=== PATIENT | male | born 1960 | race Caucasian/White ===

== ENCOUNTER 2019-06-27 16:05 | Observation (INO) ==
[2019-06-27] MEDS ORDERED: Ipratropium/Albuterol Neb 3 ML IH ONE (16:14)
[2019-06-27] MEDS ORDERED: Azithromycin 500 MG in D5% in Water 250 ML IVPB ONE (16:26)
[2019-06-27 16:54] LABS: Basophils # 0.1 K/mcL (0.0-0.2); Basophils % 0.5 %; Eosinophils # 0.9 K/mcL (0.0-0.6); Eosinophils % 5.8 %; Hematocrit 43.7 % (37.5-50.1); Hemoglobin 14.8 g/dL (12.9-16.9); Immature Granulocytes % 0.7 % (0-4); Lymphocytes # 1.3 K/mcL (0.6-4.6); Lymphocytes % 8.9 %; Mean Corpuscular HGB Conc 33.9 g/dL (31.6-35.5); Mean Corpuscular Hemoglobin 31.4 pg (28.0-33.3); Mean Corpuscular Volume 92.6 fL (83.0-100.0); Mean Platelet Volume 8.7 fL (9.4-12.4); Monocytes % 6.9 %; Neutrophils # 11.5 K/mcL (1.6-8.9); Platelet Count 314 K/mcL (140-400); Red Blood Count 4.72 M/mcL (4.19-5.50); Red Cell Distribution Width 13.1 % (11.5-14.5); Segmented Neutrophils % 77.2 %; White Blood Count 14.9 K/mcL (4.3-11.1)
[2019-06-27 17:00] LABS: Prothrombin Time 11.7 Seconds (9.4-12.1)
[2019-06-27 17:15] LABS: BUN/Creatinine Ratio 11 (6-26); Blood Urea Nitrogen 10 mg/dL (8-23); Carbon Dioxide 21 mEq/L (23-29); Chloride 104 mEq/L (98-107); Glucose 107 mg/dL (70-105); Osmolality,Calculated 282 (280-300); Potassium 3.8 mEq/L (3.5-5.1); Sodium 136 mEq/L (136-145); eGFR For African Americans > 60 (> 60); eGFR For Non-African Americans > 60 (> 60)
[2019-06-27 17:23] LABS: Troponin I < 0.03 ng/mL (< 0.04)
[2019-06-27] MEDS ORDERED: Nicotine 21 MG PATCH.TD24 TD ONE (17:31)
[2019-06-27] MEDS: 0.9 % Sodium Chloride 1,000 ML IVC SCH ×2 (17:50→19:51)
[2019-06-27] MEDS ORDERED: Albuterol 2.5 MG/3 ML NEBULIZER IH PRN (18:27)
[2019-06-27] MEDS: Ipratropium/Albuterol Neb 3 ML IH SCH ×2 (18:49→23:58)
[2019-06-27 18:52] LABS: ABG Base Excess -6 mEq/L (-2 to 3); ABG HCO3 20 mEq/L (21-27); ABG Oxygen Saturation 96 % (95-98); ABG PCO2 40 mmHg (35-45); ABG PH 7.31 pH Units (7.32-7.45); ABG PO2 87 mmHg (85-104); ABG TCO2 21 mEq/L (20-26)
[2019-06-27] MEDS ORDERED: Azithromycin 500 MG in 0.9 % Sodium Chloride 250 ML IVPB SCH (19:00)
[2019-06-27] MEDS ORDERED: 0.9 % Sodium Chloride 1,000 ML IVC SCH (23:15)
[2019-06-28] MEDS: Ipratropium/Albuterol Neb 3 ML IH SCH ×5 (04:03→20:12)
[2019-06-28] MEDS: *HR* Heparin 5,000 UNIT/ML VIAL SQ SCH ×2 (05:15→18:56)
[2019-06-28 05:23] LABS: Hematocrit 39.7 % (37.5-50.1); Hemoglobin 13.8 g/dL (12.9-16.9); Mean Corpuscular HGB Conc 34.8 g/dL (31.6-35.5); Mean Corpuscular Hemoglobin 31.2 pg (28.0-33.3); Mean Corpuscular Volume 89.6 fL (83.0-100.0); Mean Platelet Volume 9.2 fL (9.4-12.4); Platelet Count 350 K/mcL (140-400); Red Blood Count 4.43 M/mcL (4.19-5.50); Red Cell Distribution Width 13.2 % (11.5-14.5); White Blood Count 10.3 K/mcL (4.3-11.1)
[2019-06-28 05:31] LABS: BUN/Creatinine Ratio 10 (6-26); Blood Urea Nitrogen 7 mg/dL (8-23); Calcium 9.5 mg/dL (8.6-10.3); Carbon Dioxide 23 mEq/L (23-29); Chloride 106 mEq/L (98-107); Glucose 139 mg/dL (70-105); Osmolality,Calculated 288 (280-300); Potassium 4.5 mEq/L (3.5-5.1); Sodium 139 mEq/L (136-145); eGFR For African Americans > 60 (> 60); eGFR For Non-African Americans > 60 (> 60)
[2019-06-28] MEDS: Nicotine 21 MG PATCH.TD24 TD SCH (09:44)
[2019-06-28] MEDS: Azithromycin 500 MG in 0.9 % Sodium Chloride 250 ML IVPB SCH (09:44)
[2019-06-28] MEDS: predniSONE 20 MG TABLET PO SCH (09:44)
[2019-06-28] MEDS ORDERED: Carbidopa/Levodopa 25/100 TABLET PO SCH ×2 (12:15→21:00)
[2019-06-28] MEDS: Gabapentin 300 MG CAPSULE PO SCH ×2 (15:57→20:58)
[2019-06-28] MEDS: Budesonide/Formoterol 160/4.5 1 PUFF INH IH SCH (20:13)
[2019-06-29] MEDS: Ipratropium/Albuterol Neb 3 ML IH SCH ×3 (00:27→07:43)
[2019-06-29] MEDS: *HR* Heparin 5,000 UNIT/ML VIAL SQ SCH (05:17)
[2019-06-29 06:07] LABS: Hematocrit 37.2 % (37.5-50.1); Hemoglobin 12.4 g/dL (12.9-16.9); Mean Corpuscular HGB Conc 33.3 g/dL (31.6-35.5); Mean Corpuscular Hemoglobin 30.5 pg (28.0-33.3); Mean Corpuscular Volume 91.4 fL (83.0-100.0); Platelet Count 308 K/mcL (140-400); Red Blood Count 4.07 M/mcL (4.19-5.50); Red Cell Distribution Width 13.7 % (11.5-14.5)
[2019-06-29 06:12] LABS: White Blood Count 15.4 K/mcL (4.3-11.1)
[2019-06-29 06:33] LABS: BUN/Creatinine Ratio 17 (6-26); Blood Urea Nitrogen 14 mg/dL (8-23); Carbon Dioxide 24 mEq/L (23-29); Chloride 104 mEq/L (98-107); Glucose 99 mg/dL (70-105); Osmolality,Calculated 285 (280-300); Potassium 3.5 mEq/L (3.5-5.1); Sodium 137 mEq/L (136-145); eGFR For African Americans > 60 (> 60); eGFR For Non-African Americans > 60 (> 60)
[2019-06-29] MEDS: Budesonide/Formoterol 160/4.5 1 PUFF INH IH SCH (07:43)
[2019-06-29] MEDS: predniSONE 20 MG TABLET PO SCH (08:36)
[2019-06-29] MEDS: Azithromycin 500 MG in 0.9 % Sodium Chloride 250 ML IVPB SCH (08:36)
[2019-06-29] MEDS: Gabapentin 300 MG CAPSULE PO SCH (08:36)
[2019-06-29] MEDS: Nicotine 21 MG PATCH.TD24 TD SCH (08:37)
[2019-06-29] MEDS ORDERED: NON-FORMULARY MEDICATION 1 EACH EACH (Umeclidinium Bromide [Incruse Ellipta] 1 PUFF) IH SCH (09:00)
[2019-06-29] MEDS ORDERED: Fluticasone Propionate Nasal 50 MCG/SPRAY BOTTLE NS SCH (09:00)
[2019-06-29] MEDS ORDERED: Aspirin Enteric Coated 81 MG Tablet PO SCH (09:00)
[2019-06-29] MEDS ORDERED: NIFEdipine XL (24 HR) 30 MG TAB.ER.24 PO SCH (09:00)
[2019-06-29 09:09] VITALS: BP 149/88
[2019-07-01] MEDS ORDERED: Ergocalciferol (VIT D2) 50,000 UNIT (1.25MG) CAP PO SCH (09:00)
== END 2019-06-29 10:16 | disposition home or self-care (01) ==
LOC: EMEROOARM 16:05 → 2ANU 16:05 → SUATTDRO 18:53 → 2ANU 20:10
PROVIDERS: ADMIT Family Medicine; ATTEND Internal Medicine

== ENCOUNTER 2019-07-08 12:07 | Inpatient (IN) ==
[2019-07-08] MEDS ORDERED: methylPREDNISolone 125 MG/2 ML VIAL IVP ONE (12:11)
[2019-07-08] MEDS ORDERED: Ipratropium/Albuterol Neb 3 ML IH ONE (12:11)
[2019-07-08] MEDS ORDERED: Ipratropium/Albuterol Neb 3 ML ONE (12:14)
[2019-07-08 12:41] LABS: Basophils # 0.1 K/mcL (0.0-0.2); Basophils % 0.5 %; Eosinophils # 3.7 K/mcL (0.0-0.6); Eosinophils % 17.9 %; Hematocrit 45.8 % (37.5-50.1); Hemoglobin 15.4 g/dL (12.9-16.9); Immature Granulocytes % 0.9 % (0-4); Lymphocytes # 2.5 K/mcL (0.6-4.6); Lymphocytes % 12.2 %; Mean Corpuscular HGB Conc 33.6 g/dL (31.6-35.5); Mean Corpuscular Hemoglobin 30.6 pg (28.0-33.3); Mean Corpuscular Volume 90.9 fL (83.0-100.0); Mean Platelet Volume 8.6 fL (9.4-12.4); Monocytes # 0.9 K/mcL (0.0-1.3); Monocytes % 4.4 %; Platelet Count 363 K/mcL (140-400); Red Blood Count 5.04 M/mcL (4.19-5.50); Red Cell Distribution Width 13.5 % (11.5-14.5); Segmented Neutrophils % 64.1 %; White Blood Count 20.5 K/mcL (4.3-11.1)
[2019-07-08 12:43] LABS: Neutrophils # 13.1 K/mcL (1.6-8.9); Platelet Estimate Normal (Normal)
[2019-07-08 13:01] LABS: BUN/Creatinine Ratio 13 (6-26); Blood Urea Nitrogen 11 mg/dL (8-23); Carbon Dioxide 25 mEq/L (23-29); Chloride 100 mEq/L (98-107); Glucose 122 mg/dL (70-105); Osmolality,Calculated 275 (280-300); Potassium 4.4 mEq/L (3.5-5.1); Sodium 132 mEq/L (136-145); eGFR For African Americans > 60 (> 60); eGFR For Non-African Americans > 60 (> 60)
[2019-07-08] MEDS ORDERED: Azithromycin 500 MG in 0.9 % Sodium Chloride 250 ML IVPB ONE (13:10)
[2019-07-08] MEDS ORDERED: Albuterol 2.5 MG/3 ML NEBULIZER IH ONE (14:01)
[2019-07-08] MEDS ORDERED: Isovue-370 500 ML BOTTLE IVP ONE (14:13)
[2019-07-08] MEDS ORDERED: Naloxone 0.4 MG/ML INJ IVP PRN (14:14)
[2019-07-08] MEDS ORDERED: Ondansetron 4 MG/2 ML VIAL IVP PRN (14:14)
[2019-07-08] MEDS: Ipratropium/Albuterol Neb 3 ML IH SCH ×3 (15:07→23:51)
[2019-07-08] MEDS: MethylPREDNISolone 40 MG/ML VIAL IVP SCH (17:49)
[2019-07-08] MEDS: *HR* Heparin 5,000 UNIT/ML VIAL SQ SCH (17:49)
[2019-07-08] MEDS: Gabapentin 300 MG CAPSULE PO SCH ×2 (17:49→20:43)
[2019-07-08] MEDS: Nicotine 21 MG PATCH.TD24 TD SCH (17:50)
[2019-07-08 19:20] LABS: Adenovirus Not Detected (Not Detect); Bordetella Pertussis Not Detected (Not Detect); Chlamydophila pneumoniae Not Detected (Not Detect); Coronavirus 229E Not Detected (Not Detect); Coronavirus HKU1 Not Detected (Not Detect); Coronavirus NL63 Not Detected (Not Detect); Coronavirus OC43 Not Detected (Not Detect); Human Metapneumovirus Not Detected (Not Detect); Human Rhinovirus/Enterovirus Not Detected (Not Detect); Influenza A Subtype 2009 H1 Not Detected (Not Detect); Influenza B Not Detected (Not Detect); Mycoplasma pneumoniae Not Detected (Not Detect); Parainfluenza Virus 1 Not Detected (Not Detect); Parainfluenza Virus 2 Not Detected (Not Detect); Parainfluenza Virus 3 Not Detected (Not Detect); Parainfluenza Virus 4 Not Detected (Not Detect); Respiratory Syncytial Virus Not Detected (Not Detect)
[2019-07-08] MEDS: Budesonide/Formoterol 160/4.5 1 PUFF INH IH SCH (20:03)
[2019-07-09] MEDS ORDERED: 0.9 % Sodium Chloride 1,000 ML IVC ONE ×2 (00:22→03:51)
[2019-07-09 03:07] LABS: Basophils % 0.1 %; Eosinophils % 0.1 %; Hematocrit 41.1 % (37.5-50.1); Hemoglobin 13.9 g/dL (12.9-16.9); Immature Granulocytes % 0.9 % (0-4); Lymphocytes # 1.4 K/mcL (0.6-4.6); Lymphocytes % 10.2 %; Mean Corpuscular HGB Conc 33.8 g/dL (31.6-35.5); Mean Corpuscular Hemoglobin 30.9 pg (28.0-33.3); Mean Corpuscular Volume 91.3 fL (83.0-100.0); Mean Platelet Volume 8.9 fL (9.4-12.4); Monocytes # 0.4 K/mcL (0.0-1.3); Monocytes % 2.6 %; Platelet Count 309 K/mcL (140-400); Red Cell Distribution Width 13.4 % (11.5-14.5); Segmented Neutrophils % 86.1 %
[2019-07-09 03:22] LABS: BUN/Creatinine Ratio 17 (6-26); Blood Urea Nitrogen 16 mg/dL (8-23); Calcium 9.5 mg/dL (8.6-10.3); Carbon Dioxide 21 mEq/L (23-29); Chloride 103 mEq/L (98-107); Glucose 148 mg/dL (70-105); Magnesium 1.8 mg/dL (1.6-2.6); Osmolality,Calculated 282 (280-300); Potassium 4.2 mEq/L (3.5-5.1); Sodium 134 mEq/L (136-145); eGFR For African Americans > 60 (> 60); eGFR For Non-African Americans > 60 (> 60)
[2019-07-09] MEDS: Ipratropium/Albuterol Neb 3 ML IH SCH ×6 (04:17→23:57)
[2019-07-09] MEDS: *HR* Heparin 5,000 UNIT/ML VIAL SQ SCH ×2 (05:43→17:34)
[2019-07-09] MEDS: MethylPREDNISolone 40 MG/ML VIAL IVP SCH ×2 (05:46→17:34)
[2019-07-09] MEDS: Budesonide/Formoterol 160/4.5 1 PUFF INH IH SCH ×2 (07:33→19:57)
[2019-07-09] MEDS: Carbidopa/Levodopa 25/100 TABLET PO SCH (08:45)
[2019-07-09] MEDS: NIFEdipine XL (24 HR) 30 MG TAB.ER.24 PO SCH (08:45)
[2019-07-09] MEDS: Aspirin Enteric Coated 81 MG Tablet PO SCH (08:45)
[2019-07-09] MEDS: Gabapentin 300 MG CAPSULE PO SCH ×3 (08:46→20:05)
[2019-07-09] MEDS: Nicotine 21 MG PATCH.TD24 TD SCH (08:46)
[2019-07-09] MEDS: Fluticasone Propionate Nasal 50 MCG/SPRAY BOTTLE NS SCH (08:52)
[2019-07-10] MEDS: Ipratropium/Albuterol Neb 3 ML IH SCH ×6 (03:46→23:40)
[2019-07-10] MEDS: MethylPREDNISolone 40 MG/ML VIAL IVP SCH ×2 (05:32→17:35)
[2019-07-10] MEDS: *HR* Heparin 5,000 UNIT/ML VIAL SQ SCH ×2 (05:32→17:38)
[2019-07-10 07:33] LABS: Hemoglobin 14.1 g/dL (12.9-16.9); Red Cell Distribution Width 13.9 % (11.5-14.5)
[2019-07-10 07:34] LABS: Estimated Average Glucose 128 mg/dl; Mean Corpuscular HGB Conc 33.6 g/dL (31.6-35.5); Mean Corpuscular Hemoglobin 30.7 pg (28.0-33.3); Mean Corpuscular Volume 91.5 fL (83.0-100.0); Platelet Count 336 K/mcL (140-400); Red Blood Count 4.59 M/mcL (4.19-5.50); White Blood Count 28.5 K/mcL (4.3-11.1)
[2019-07-10] MEDS: Budesonide/Formoterol 160/4.5 1 PUFF INH IH SCH ×2 (07:50→19:45)
[2019-07-10 07:53] LABS: BUN/Creatinine Ratio 31 (6-26); Blood Urea Nitrogen 28 mg/dL (8-23); Calcium 9.6 mg/dL (8.6-10.3); Carbon Dioxide 25 mEq/L (23-29); Chloride 100 mEq/L (98-107); Glucose 127 mg/dL (70-105); Osmolality,Calculated 283 (280-300); Potassium 4.6 mEq/L (3.5-5.1); Sodium 133 mEq/L (136-145); eGFR For African Americans > 60 (> 60); eGFR For Non-African Americans > 60 (> 60)
[2019-07-10] MEDS: Gabapentin 300 MG CAPSULE PO SCH ×3 (08:12→20:48)
[2019-07-10] MEDS: Nicotine 21 MG PATCH.TD24 TD SCH (08:12)
[2019-07-10] MEDS: Carbidopa/Levodopa 25/100 TABLET PO SCH (08:12)
[2019-07-10] MEDS: NIFEdipine XL (24 HR) 30 MG TAB.ER.24 PO SCH (08:12)
[2019-07-10] MEDS: Aspirin Enteric Coated 81 MG Tablet PO SCH (08:12)
[2019-07-10] MEDS: Fluticasone Propionate Nasal 50 MCG/SPRAY BOTTLE NS SCH (08:13)
[2019-07-11 03:07] LABS: Basophils % 0.1 %; Hematocrit 39.9 % (37.5-50.1); Lymphocytes # 1.8 K/mcL (0.6-4.6); Lymphocytes % 8.2 %; Mean Corpuscular HGB Conc 32.6 g/dL (31.6-35.5); Mean Corpuscular Volume 91.9 fL (83.0-100.0); Mean Platelet Volume 9.2 fL (9.4-12.4); Monocytes # 1.1 K/mcL (0.0-1.3); Monocytes % 4.8 %; Neutrophils # 18.9 K/mcL (1.6-8.9); Platelet Count 321 K/mcL (140-400); Red Blood Count 4.34 M/mcL (4.19-5.50); Red Cell Distribution Width 13.6 % (11.5-14.5); Segmented Neutrophils % 85.9 %
[2019-07-11 03:26] LABS: BUN/Creatinine Ratio 30 (6-26); Blood Urea Nitrogen 28 mg/dL (8-23); Calcium 9.2 mg/dL (8.6-10.3); Carbon Dioxide 25 mEq/L (23-29); Chloride 102 mEq/L (98-107); Glucose 126 mg/dL (70-105); Osmolality,Calculated 285 (280-300); Potassium 4.5 mEq/L (3.5-5.1); Sodium 134 mEq/L (136-145); eGFR For African Americans > 60 (> 60); eGFR For Non-African Americans > 60 (> 60)
[2019-07-11] MEDS: Ipratropium/Albuterol Neb 3 ML IH SCH ×3 (03:56→11:05)
[2019-07-11] MEDS: *HR* Heparin 5,000 UNIT/ML VIAL SQ SCH (05:22)
[2019-07-11] MEDS: MethylPREDNISolone 40 MG/ML VIAL IVP SCH (05:22)
[2019-07-11 06:37] VITALS: BP 119/81
[2019-07-11] MEDS: Budesonide/Formoterol 160/4.5 1 PUFF INH IH SCH (07:34)
[2019-07-11] MEDS: Aspirin Enteric Coated 81 MG Tablet PO SCH (07:57)
[2019-07-11] MEDS: Gabapentin 300 MG CAPSULE PO SCH (07:58)
[2019-07-11] MEDS: Carbidopa/Levodopa 25/100 TABLET PO SCH (07:58)
[2019-07-11] MEDS: NIFEdipine XL (24 HR) 30 MG TAB.ER.24 PO SCH (07:59)
[2019-07-11] MEDS: Nicotine 21 MG PATCH.TD24 TD SCH (07:59)
[2019-07-11] MEDS: Fluticasone Propionate Nasal 50 MCG/SPRAY BOTTLE NS SCH (08:00)
[2019-07-11] MEDS ORDERED: predniSONE 20 MG TABLET PO ONE (08:35)
[2019-07-11] MEDS ORDERED: Doxycycline 100 MG CAPSULE PO ONE (08:36)
== END 2019-07-11 12:43 | disposition home or self-care (01) | DRG 189 ==
LOC: 3BNU 12:07 → EMEROOARM 12:07 → SUATTDRO 14:14 → 3BNU 15:34
PROVIDERS: ADMIT Internal Medicine; ATTEND Internal Medicine

== ENCOUNTER 2019-08-30 20:41 | Inpatient (IN) ==
[2019-08-30] MEDS ORDERED: Ipratropium/Albuterol Neb 3 ML IH ONE (20:46)
[2019-08-30 21:19] LABS: Basophils # 0.1 K/mcL (0.0-0.2); Basophils % 0.9 %; Eosinophils # 1.5 K/mcL (0.0-0.6); Eosinophils % 10.9 %; Hematocrit 43.6 % (37.5-50.1); Hemoglobin 14.6 g/dL (12.9-16.9); Immature Granulocytes % 0.5 % (0-4); Lymphocytes # 3.7 K/mcL (0.6-4.6); Lymphocytes % 26.9 %; Mean Corpuscular HGB Conc 33.5 g/dL (31.6-35.5); Mean Corpuscular Hemoglobin 30.8 pg (28.0-33.3); Mean Platelet Volume 8.9 fL (9.4-12.4); Monocytes # 1.5 K/mcL (0.0-1.3); Monocytes % 11.2 %; Neutrophils # 6.8 K/mcL (1.6-8.9); Platelet Count 358 K/mcL (140-400); Red Blood Count 4.74 M/mcL (4.19-5.50); Red Cell Distribution Width 13.2 % (11.5-14.5); Segmented Neutrophils % 49.6 %; White Blood Count 13.8 K/mcL (4.3-11.1)
[2019-08-30 21:21] LABS: Bilirubin,Urine Negative (Negative); Blood,Urine Negative (Negative); Clarity,Urine Clear (Clear); Color,Urine Yellow (Yellow); Glucose,Urine (UA) 250 mg/dL (Normal); Ketones,Urine Negative (Negative); Leukocyte Esterase,Urine Negative (Negative); Nitrite,Urine Negative (Negative); Protein,Urine 30 mg/dL (Neg-Trace); Specific Gravity,Urine 1.018 (1.010-1.025); Urobilinogen,Urine Normal (Normal)
[2019-08-30 21:25] LABS: Bacteria,Urine None Seen per hpf (None-Few); Hyaline Casts,Urine None Seen per lpf (None-Few); RBC,Urine 0-3 per hpf (0-3); Squamous Epithelial Cell,Urine Few per lpf (None-Few); WBC,Urine 0-3 per hpf (0-3)
[2019-08-30] MEDS ORDERED: Ipratropium 1 PUFF INHALER IH PRN (21:26)
[2019-08-30 21:27] LABS: INR 0.9; Prothrombin Time 10.6 Seconds (9.4-12.1)
[2019-08-30] MEDS ORDERED: Aspirin 325 MG TABLET PO ONE (21:27)
[2019-08-30 21:41] LABS: Alanine Aminotransferase 14 Units/L (7-52); Albumin 4.4 g/dL (3.5-5.7); Albumin/Globulin Ratio 1.7 (1.1-2.2); Alkaline Phosphatase 89 Units/L (34-104); Aspartate Amino Transferase 12 Units/L (13-39); BUN/Creatinine Ratio 14 (6-26); Bilirubin,Direct 0.1 mg/dL (0.0-0.2); Bilirubin,Indirect 0.1 mg/dL (0.0-1.0); Bilirubin,Total 0.2 mg/dL (0.3-1.0); Blood Urea Nitrogen 11 mg/dL (8-23); Calcium 9.3 mg/dL (8.6-10.3); Carbon Dioxide 29 mEq/L (23-29); Chloride 103 mEq/L (98-107); Creatine Kinase 75 Units/L (30-223); Globulin 2.6 g/dL (2.4-3.5); Glucose 98 mg/dL (70-105); Osmolality,Calculated 285 (280-300); Potassium 3.9 mEq/L (3.5-5.1); Sodium 138 mEq/L (136-145); Troponin I < 0.03 ng/mL (< 0.04); eGFR For African Americans > 60 (> 60); eGFR For Non-African Americans > 60 (> 60)
[2019-08-30 21:45] LABS: ABG Base Excess 1 mEq/L (-2 to 3); ABG HCO3 29 mEq/L (21-27); ABG Oxygen Saturation 96 % (95-98); ABG PCO2 56 mmHg (35-45); ABG PH 7.31 pH Units (7.32-7.45); ABG PO2 95 mmHg (85-104); ABG TCO2 30 mEq/L (20-26)
[2019-08-30] MEDS ORDERED: Isovue-370 500 ML BOTTLE IVP ONE (21:50)
[2019-08-30] MEDS ORDERED: Azithromycin 500 MG in 0.9 % Sodium Chloride 250 ML IVPB ONE (23:10)
[2019-08-31] MEDS ORDERED: Naloxone 0.4 MG/ML INJ IVP PRN (00:21)
[2019-08-31 02:24] LABS: ABG Base Excess 0 mEq/L (-2 to 3); ABG HCO3 27 mEq/L (21-27); ABG Oxygen Saturation 99 % (95-98); ABG PCO2 47 mmHg (35-45); ABG PH 7.36 pH Units (7.32-7.45); ABG PO2 137 mmHg (85-104); ABG TCO2 28 mEq/L (20-26)
[2019-08-31] MEDS: MethylPREDNISolone 40 MG/ML VIAL IVP SCH ×3 (02:30→14:16)
[2019-08-31] MEDS: *HR* Heparin 5,000 UNIT/ML VIAL SQ SCH ×3 (02:30→20:54)
[2019-08-31 03:03] LABS: Basophils # 0.1 K/mcL (0.0-0.2); Basophils % 0.7 %; Eosinophils # 1.5 K/mcL (0.0-0.6); Eosinophils % 10.3 %; Hematocrit 43.2 % (37.5-50.1); Hemoglobin 14.5 g/dL (12.9-16.9); Immature Granulocytes % 0.4 % (0-4); Lymphocytes # 3.3 K/mcL (0.6-4.6); Lymphocytes % 22.6 %; Mean Corpuscular HGB Conc 33.6 g/dL (31.6-35.5); Mean Corpuscular Hemoglobin 30.8 pg (28.0-33.3); Mean Corpuscular Volume 91.7 fL (83.0-100.0); Mean Platelet Volume 8.8 fL (9.4-12.4); Monocytes # 1.4 K/mcL (0.0-1.3); Monocytes % 9.6 %; Neutrophils # 8.2 K/mcL (1.6-8.9); Platelet Count 336 K/mcL (140-400); Red Blood Count 4.71 M/mcL (4.19-5.50); Red Cell Distribution Width 13.2 % (11.5-14.5); Segmented Neutrophils % 56.4 %; White Blood Count 14.5 K/mcL (4.3-11.1)
[2019-08-31 03:21] LABS: Alanine Aminotransferase 15 Units/L (7-52); Albumin 4.3 g/dL (3.5-5.7); Albumin/Globulin Ratio 1.7 (1.1-2.2); Alkaline Phosphatase 88 Units/L (34-104); Aspartate Amino Transferase 12 Units/L (13-39); BUN/Creatinine Ratio 15 (6-26); Bilirubin,Total 0.3 mg/dL (0.3-1.0); Blood Urea Nitrogen 11 mg/dL (8-23); Calcium 9.4 mg/dL (8.6-10.3); Carbon Dioxide 25 mEq/L (23-29); Chloride 103 mEq/L (98-107); Globulin 2.5 g/dL (2.4-3.5); Glucose 115 mg/dL (70-105); Osmolality,Calculated 282 (280-300); Potassium 4.2 mEq/L (3.5-5.1); Sodium 136 mEq/L (136-145); Total Protein 6.8 g/dL (6.4-8.9); eGFR For African Americans > 60 (> 60); eGFR For Non-African Americans > 60 (> 60)
[2019-08-31] MEDS: Ipratropium 1 PUFF INHALER IH SCH ×6 (03:53→23:22)
[2019-08-31] MEDS: Budesonide/Formoterol 160/4.5 1 PUFF INH IH SCH ×2 (08:43→20:03)
[2019-08-31] MEDS ORDERED: Azithromycin 500 MG in 0.9 % Sodium Chloride 250 ML IVPB SCH (09:00)
[2019-08-31] MEDS ORDERED: Tiotropium 18 MCG inhalation IH SCH (10:00)
[2019-08-31] MEDS: cefTRIAXone 2,000 MG in Water for inj. (sterile) 20 ML IVP SCH (10:16)
[2019-08-31] MEDS: Aspirin Enteric Coated 81 MG Tablet PO SCH (10:16)
[2019-08-31] MEDS: NIFEdipine XL (24 HR) 30 MG TAB.ER.24 PO SCH (10:17)
[2019-08-31] MEDS: Gabapentin 300 MG CAPSULE PO SCH ×3 (10:17→20:54)
[2019-08-31] MEDS: Carbidopa/Levodopa 25/100 TABLET PO SCH (10:17)
[2019-08-31] MEDS ORDERED: Fluticasone Propionate Nasal 50 MCG/SPRAY BOTTLE NS PRN (15:40)
[2019-09-01] MEDS: Ipratropium 1 PUFF INHALER IH SCH ×3 (03:23→11:36)
[2019-09-01 04:16] LABS: Basophils % 0.1 %; Eosinophils % 0.1 %; Hematocrit 40.4 % (37.5-50.1); Hemoglobin 13.4 g/dL (12.9-16.9); Immature Granulocytes % 0.6 % (0-4); Lymphocytes # 2.6 K/mcL (0.6-4.6); Lymphocytes % 19.1 %; Mean Corpuscular HGB Conc 33.2 g/dL (31.6-35.5); Mean Corpuscular Hemoglobin 30.4 pg (28.0-33.3); Mean Corpuscular Volume 91.6 fL (83.0-100.0); Mean Platelet Volume 9.2 fL (9.4-12.4); Monocytes # 1.4 K/mcL (0.0-1.3); Monocytes % 9.9 %; Neutrophils # 9.6 K/mcL (1.6-8.9); Platelet Count 342 K/mcL (140-400); Red Blood Count 4.41 M/mcL (4.19-5.50); Red Cell Distribution Width 13.2 % (11.5-14.5); Segmented Neutrophils % 70.2 %; White Blood Count 13.6 K/mcL (4.3-11.1)
[2019-09-01 04:36] LABS: BUN/Creatinine Ratio 29 (6-26); Blood Urea Nitrogen 20 mg/dL (8-23); Carbon Dioxide 25 mEq/L (23-29); Chloride 102 mEq/L (98-107); Glucose 119 mg/dL (70-105); Osmolality,Calculated 282 (280-300); Potassium 4.3 mEq/L (3.5-5.1); Sodium 134 mEq/L (136-145); eGFR For African Americans > 60 (> 60); eGFR For Non-African Americans > 60 (> 60)
[2019-09-01] MEDS: *HR* Heparin 5,000 UNIT/ML VIAL SQ SCH (06:05)
[2019-09-01] MEDS: Budesonide/Formoterol 160/4.5 1 PUFF INH IH SCH (07:50)
[2019-09-01] MEDS: cefTRIAXone 2,000 MG in Water for inj. (sterile) 20 ML IVP SCH (08:32)
[2019-09-01] MEDS: Gabapentin 300 MG CAPSULE PO SCH (08:33)
[2019-09-01] MEDS: NIFEdipine XL (24 HR) 30 MG TAB.ER.24 PO SCH (08:33)
[2019-09-01] MEDS: Carbidopa/Levodopa 25/100 TABLET PO SCH (08:33)
[2019-09-01] MEDS: Aspirin Enteric Coated 81 MG Tablet PO SCH (08:33)
[2019-09-01] MEDS ORDERED: predniSONE 20 MG TABLET PO SCH (09:00)
[2019-09-01] MEDS ORDERED: Azithromycin 250 MG TABLET PO SCH (09:00)
[2019-09-01 12:25] VITALS: BP 116/77
[2019-09-02] MEDS ORDERED: Ergocalciferol (VIT D2) 50,000 UNIT (1.25MG) CAP PO SCH (09:00)
== END 2019-09-01 14:13 | disposition home or self-care (01) | DRG 189 ==
LOC: 2NENU 20:41 → EMEROOARM 20:41 → 2NENU 23:20
PROVIDERS: ADMIT Internal Medicine; ATTEND Internal Medicine

== ENCOUNTER 2021-11-13 12:16 | Observation (INO) ==
[2021-11-13] MEDS ORDERED: methylPREDNISolone 125 MG/2 ML VIAL IVP ONE (12:39)
[2021-11-13] MEDS ORDERED: Ipratropium/Albuterol Neb 3 ML IH ONE (12:39)
[2021-11-13] MEDS ORDERED: 0.9 % Sodium Chloride 1,000 ML IVC ONE (12:39)
[2021-11-13 13:24] LABS: Basophils # 0.1 K/mcL (0.0-0.2); Basophils % 0.7 %; Eosinophils # 1.5 K/mcL (0.0-0.6); Eosinophils % 10.4 %; Hematocrit 39.6 % (37.5-50.1); Hemoglobin 13.2 g/dL (12.9-16.9); Immature Granulocytes % 0.9 % (0-4); Lymphocytes # 1.6 K/mcL (0.6-4.6); Lymphocytes % 11.5 %; Mean Corpuscular HGB Conc 33.3 g/dL (31.6-35.5); Mean Corpuscular Hemoglobin 30.3 pg (28.0-33.3); Mean Platelet Volume 8.8 fL (9.4-12.4); Monocytes % 6.8 %; Neutrophils # 9.7 K/mcL (1.6-8.9); Platelet Count 318 K/mcL (140-400); Red Blood Count 4.35 M/mcL (4.19-5.50); Red Cell Distribution Width 14.1 % (11.5-14.5); Segmented Neutrophils % 69.7 %
[2021-11-13 13:43] LABS: BUN/Creatinine Ratio 20 (6-26); Blood Urea Nitrogen 14 mg/dL (8-23); Calcium 9.1 mg/dL (8.6-10.3); Carbon Dioxide 29 mEq/L (23-29); Chloride 102 mEq/L (98-107); Glucose 122 mg/dL (70-105); Osmolality,Calculated 284 (280-300); Potassium 4.3 mEq/L (3.5-5.1); Sodium 136 mEq/L (136-145); Troponin I < 0.03 ng/mL (< 0.04); eGFR For African Americans > 60 (> 60); eGFR For Non-African Americans > 60 (> 60)
[2021-11-13 13:51] LABS: Influenza A PCR Negative (Negative); Influenza B PCR Negative (Negative); Resp. Syncytial Virus PCR Negative (Negative)
[2021-11-13 14:28] LABS: SARS-CoV-2 by PCR (In House) Negative (Negative)
[2021-11-13] MEDS ORDERED: cefTRIAXone 1,000 MG in 0.9 % Sodium Chloride 20 ML IVP ONE (15:20)
[2021-11-13] MEDS ORDERED: Azithromycin 250 MG TABLET PO ONE (15:21)
[2021-11-13] MEDS ORDERED: Naloxone 0.4 MG/ML INJ IVP PRN (16:07)
[2021-11-13] MEDS ORDERED: Ipratropium/Albuterol Neb 3 ML IH PRN (16:23)
[2021-11-13] MEDS ORDERED: MOM Conc 10 ML UD.LIQ PO PRN (17:45)
[2021-11-13] MEDS: *HR* Heparin 5,000 UNIT/ML VIAL SQ SCH (18:42)
[2021-11-13] MEDS ORDERED: Apixaban 5 MG TABLET PO SCH (21:00)
[2021-11-13] MEDS: Ipratropium/Albuterol Neb 3 ML IH SCH (22:42)
[2021-11-14 03:19] LABS: Basophils % 0.2 %; Eosinophils % 0.1 %; Immature Granulocytes % 0.6 % (0-4); Lymphocytes # 1.3 K/mcL (0.6-4.6); Lymphocytes % 16.1 %; Mean Corpuscular HGB Conc 33.3 g/dL (31.6-35.5); Mean Corpuscular Hemoglobin 30.2 pg (28.0-33.3); Mean Corpuscular Volume 90.5 fL (83.0-100.0); Monocytes # 0.4 K/mcL (0.0-1.3); Monocytes % 4.8 %; Neutrophils # 6.3 K/mcL (1.6-8.9); Platelet Count 316 K/mcL (140-400); Red Blood Count 3.98 M/mcL (4.19-5.50); Red Cell Distribution Width 13.5 % (11.5-14.5); Segmented Neutrophils % 78.2 %; White Blood Count 8.1 K/mcL (4.3-11.1)
[2021-11-14 03:39] LABS: Alanine Aminotransferase 12 Units/L (7-52); Albumin 3.7 g/dL (3.5-5.7); Albumin/Globulin Ratio 1.5 (1.1-2.2); Alkaline Phosphatase 71 Units/L (34-104); Aspartate Amino Transferase 10 Units/L (13-39); BUN/Creatinine Ratio 21 (6-26); Bilirubin,Total 0.2 mg/dL (0.3-1.0); Blood Urea Nitrogen 19 mg/dL (8-23); Calcium 9.2 mg/dL (8.6-10.3); Carbon Dioxide 26 mEq/L (23-29); Chloride 101 mEq/L (98-107); Globulin 2.5 g/dL (2.4-3.5); Glucose 142 mg/dL (70-105); Osmolality,Calculated 285 (280-300); Potassium 4.6 mEq/L (3.5-5.1); Sodium 135 mEq/L (136-145); Total Protein 6.2 g/dL (6.4-8.9); eGFR For African Americans > 60 (> 60); eGFR For Non-African Americans > 60 (> 60)
[2021-11-14] MEDS: Ipratropium/Albuterol Neb 3 ML IH SCH ×3 (03:56→16:14)
[2021-11-14] MEDS: methylPREDNISolone 125 MG/2 ML VIAL IVP SCH ×2 (06:25→16:45)
[2021-11-14] MEDS: *HR* Heparin 5,000 UNIT/ML VIAL SQ SCH ×2 (06:25→16:44)
[2021-11-14 07:05] LABS: Adenovirus Not Detected (Not Detect); Bordetella Pertussis Not Detected (Not Detect); Chlamydophila pneumoniae Not Detected (Not Detect); Coronavirus 229E Not Detected (Not Detect); Coronavirus HKU1 Not Detected (Not Detect); Coronavirus NL63 Not Detected (Not Detect); Coronavirus OC43 Not Detected (Not Detect); Human Metapneumovirus Not Detected (Not Detect); Human Rhinovirus/Enterovirus Not Detected (Not Detect); Influenza A Subtype 2009 H1 Not Detected (Not Detect); Influenza B Not Detected (Not Detect); Mycoplasma pneumoniae Not Detected (Not Detect); Parainfluenza Virus 1 Not Detected (Not Detect); Parainfluenza Virus 2 Not Detected (Not Detect); Parainfluenza Virus 3 Not Detected (Not Detect); Parainfluenza Virus 4 Not Detected (Not Detect); Respiratory Syncytial Virus Not Detected (Not Detect); SARS-CoV-2 Not Detected (Not Detect)
[2021-11-14] MEDS ORDERED: Azithromycin 250 MG TABLET PO ONE (09:00)
[2021-11-14 14:10] VITALS: BP 107/67; PULSE 75; TEMP 97.9; O2SAT 92
== END 2021-11-14 17:00 | disposition home or self-care (01) ==
LOC: 3BNU 12:16 → EMEROOARM 12:16 → 3BNU 17:38
PROVIDERS: ADMIT Internal Medicine; ATTEND Internal Medicine